=== PATIENT | female | born 1930 | race American Indian/Alaskan Native ===

== ENCOUNTER 2017-10-17 09:48 | Emergency (ER) | payer MEDICARE ==
[~2017-10-17 09:48] MED LIST: ADRENALIN ONE; D50W (25GM) Syringe IV ONE
--- NOTE | 2017-10-17 10:15 | Emergency Department Report ---
ED CPR HPI - General Chief Complaint: Cardiac Arrest/CPR Stated Complaint: CARDIAC ARREST Time Seen by Provider: 10/17/17 09:57 Source: family Mode of arrival: Stretcher Limitations: Other - History of Present Illness Initial Comments: This is an 87-year-old -[place] female presents to the emergency department by EMS from a hotel in cardiac arrest. Apparently the patient was with family and they were about to go somewhere and she was sitting in the back of a van when she slumped over unresponsive. EMS found her to be in asystole and started ACLS protocol including intubating her, chest compressions. She had a blood sugar of 60 and was given an amp of D50. She received 3 rounds of epinephrine and one of sodium bicarbonate. As a approached [facility], the patient went into V. fib and received a defibrillation and then went back into PEA. She arrives unresponsive, intubated and pulseless. She apparently has a past medical history of a previous stroke about 10 years ago and a brain bleed for 5 years ago. The granddaughter was here at the hospital and had the patient's daughter on the phone, Leola Lazo, who says that there was no DO NOT RESUSCITATE in place but that with her mother spoke with her regarding this situation in the past and wants to be DNR. - Related Data Allergies Allergy/AdvReac Type Severity Reaction Status Date / Time Unable to Assess Allergy Unverified 10/17/17 10:39 ED Review of Systems ROS: Stated complaint: CARDIAC ARREST Other details as noted in HPI Comment: Unobtainable due to pts medical conditions ED Physical Exam - General Limitations: Other - Other Other exam information: GENERAL: Patient is ill-appearing and unresponsive. HENT: Normocephalic. Atraumatic. Patient has moist mucous membranes. ET tube in place. EYES: Pupils are fixed and dilated. NECK: Supple. Trachea appears midline. CHEST/LUNGS: There are no spontaneous respirations. HEART/CARDIOVASCULAR: There are no spontaneous heart sounds. ABDOMEN: Abdomen is soft. There is no abdominal distention. SKIN: Skin is cool but dry. NEURO: Unresponsive. Does not withdraw to painful stimuli. Does not follow any commands. MUSCULOSKELETAL: There is no obvious deformity. There is no evidence of acute injury. No palpable femoral or radial pulses. ED Medical Decision Making - Medical Decision Making The patient was a witnessed arrest. She received ACLS protocol as soon as EMS arrived. She had one episode of V. fib but otherwise was in PEA and/or asystole. She was intubated, received 3 rounds of epinephrine and one of sodium bicarbonate. She had a blood sugar of 60 so she was given D50. When she arrived here, Accu-Chek was 49, so another D50 was given. She was given epinephrine, chest compressions continued and ACLS protocol was followed. She was in asystole. We did 2 rounds of ACLS and she remained in asystole both times, received another dose of epinephrine. At this point the granddaughter was there with the daughter on the phone, who is now the medical decision maker as the patient herself is incapacitated. She said that it is her mother's wishes for her to be DO NOT RESUSCITATE and the situation. This was confirmed with the daughter on the phone with multiple witnesses in the room. At this point we ceased CPR and time of was called. - Differential Diagnosis WA, PE, Dysrythmia Critical Care Time: Yes Critical care time in (mins) excluding proc time.: 7 Critical care attestation.: If time is entered above; I have spent that time in minutes in the direct care of this critically ill patient, excluding procedure time. Critical care time spent on this patient in doing her initial evaluation, supervision of ACLS protocol up until the point where family says she was DO NOT RESUSCITATE and to stop CPR efforts. Critical Care Time: 7 minutes ED Disposition Clinical Impression: Cardiac arrest Respiratory failure Qualifiers: Chronicity: acute Respiratory failure complication: unspecified whether with hypoxia or hypercapnia Qualified Code(s): J96.00 - Acute respiratory failure, unspecified whether with hypoxia or hypercapnia Disposition: DC-20 Is pt being admited?: No Time of Disposition: 11:18
== END 2017-10-17 12:23 ==
LOC: ED 09:48
DX: I46.9 Cardiac arrest, cause unspecified (principal); J96.00 Acute respiratory failure, unspecified whether with hypoxia or hypercapnia
CPT/HCPCS: 82962; 92950; 99285; J0171